=== PATIENT | female | born 1990 | race Caucasian/White ===

== ENCOUNTER 2020-04-12 18:24 | Inpatient (IN) | payer MEDICAID ==
[~2020-04-12] VITALS: Ht 175.3 cm; Wt 75.9 kg
[2020-04-12] MEDS ORDERED: IV NORMAL SALINE 1000ML BAG 1,000 ML IV SCH ×2 (18:36→20:19)
--- NOTE | 2020-04-12 18:51 | PHYS DOC ---
General Adult EDM: Chief Complaint: ABDOMINAL PAIN HPI: HPI: Patient is a 29 year old female who presents with states earlier this morning she been having stabbing mid abdominal pains, nausea, vomiting. States her last bowel movement was yesterday and it was normal for her. She rates her pain a 10 out of 10. Review of Systems: Review of Systems: GI: abdominal pain, nausea, vomiting, denies bloody stools or diarrhea. [] Heart Score: Risk Factors: Risk Factors: DM, Current or recent (<one month) smoker, HTN, HLP, family history of CAD, obesity. Risk Scores: Score 0 - 3: 2.5% MACE over next 6 weeks - Discharge Home Score 4 - 6: 20.3% MACE over next 6 weeks - Admit for Clinical Observation Score 7 - 10: 72.7% MACE over next 6 weeks - Early Invasive Strategies Current Medications: Current Medications Medications (Trade) Dose Ordered Sig/Wyatt Start Time Stop Time Status Last Admin Dose Admin Sodium Chloride 1,000 ml @ 1,000 mls/hr Q1H 04/12/20 18:36 04/12/20 19:35 Allergies: Allergies: Allergies Coded Allergies Type Severity Reaction Last Updated Verified No Known Drug Allergies 04/12/20 No Physical Exam: PE: Constitutional: Well developed, well nourished, no acute distress, non-toxic appearance. [] HENT: Normocephalic, atraumatic, bilateral external ears normal, oropharynx moist, no oral exudates, nose normal. [] Eyes: PERRLA, EOMI, conjunctiva normal, no discharge. [] Neck: Normal range of motion, no tenderness, supple, no stridor. [] Cardiovascular:Heart rate regular rhythm, no murmur [] Lungs & Thorax: Bilateral breath sounds clear to auscultation [] Abdomen: Bowel sounds normal, soft, epigastric and right upper tenderness, no masses, no pulsatile masses. [] Skin: Warm, dry, no erythema, no rash. [] Back: No tenderness, no CVA tenderness. [] Extremities: No tenderness, no cyanosis, no clubbing, ROM intact, no edema. [] Neurologic: Alert and oriented X 3, normal motor function, normal sensory function, no focal deficits noted. [] Psychologic: Affect normal, judgement normal, mood normal. [] EKG: EKG: [] Radiology/Procedures: Radiology/Procedures: [] Impression: [facility] [address] [place] [address] IMAGING REPORT Signed PATIENT: RAVEN TRUJILLO ACCOUNT: [id number] : 1990 LOCATION: ER AGE: 29 SEX: F EXAM STATUS: REG ER ORD. PHYSICIAN: BRIGID ADAIR APRN REASON: pain, vomiting PROCEDURE: CT ABD PELV W/ IV CONTRST ONLY Exam: CT of abdomen and pelvis with contrast INDICATION: Pain, vomiting TECHNIQUE: Sequential axial images through the abdomen and pelvis obtained following the administration of 75 mL of Omni 300 IV contrast. Sagittal and coronal reformatted images were reconstructed from the axial data and reviewed. Comparisons: None FINDINGS: Heart size is normal. No pericardial effusion. Visualized lung bases are clear. No pleural effusion. Liver, spleen, pancreas and adrenals are unremarkable. Gallbladder surgically absent. Kidneys demonstrate symmetric enhancement. No perinephric inflammation or hydronephrosis. No renal or ureteral calculi are identified. Bladder is partially distended and appears thin-walled. Uterus is nonenlarged. Mild wall thickening noted in the ascending colon. Otherwise, Large and small bowel are unremarkable. Appendix is nonidentified. No free abdominal air or fluid. No obstruction. Abdominal aorta has a normal course and caliber. No enlarged abdominal lymph nodes are identified. No suspicious osseous lesions or acute fractures. IMPRESSION: Findings likely related to mild colitis affecting the ascending colon. This may be infectious or inflammatory in etiology. Exposure: One or more of the following in the visualized dose reduction techniques were utilized for this examination: 1. Automated exposure control 2. Adjustment of the MA and/or KV according to patient size 3. Use of iterative of reconstructive technique Electronically signed by: Sallie Cooper MD (04/12/2020 7:57 PM) [id number] DICTATED and SIGNED BY: SALLIE COOPER MD DATE: 04/12/201956 Course & Med Decision Making: Course & Med Decision Making Pertinent Labs and Imaging studies reviewed. (See chart for details) When walking to the room patient seems to be very drowsy. Alert and oriented. Speaks in full clear sentences. Answers all questions appropriately. Abdomen is soft but tender to epigastric and over to the right upper abdomen area. Denies any dysuria, chest pain, fever, back pain, shortness of breath, cough, dizziness, headache, numbness or tingling, vision changes, focal weaknesses. Bowel sounds are active. Patient is not feeling better after pain medication and fluids. She is positive for Meth and opiates. Patient is currently curled up due to pain. I have started Cipro and flagyl. I have spoken to Dr Felton for admission. [] Solange Disclaimer: Solange Disclaimer: This electronic medical record was generated, in whole or in part, using a voice recognition dictation system. Departure Departure Impression: Primary Impression: Colitis Disposition: ADMITTED INPATIENT Admitting Physician: RAHUL Condition: STABLE Referrals: NO PCP (PCP) Justicifation of Admission Dx: Justifications for Admission: Justification of Admission Dx: N/A (COLITIS) BRIGID ADAIR SECURITY PUBLIC SAFETY OFFICER Apr 12, 2020 18:51
[2020-04-12 18:54] LABS: BILIRUBIN,URINE NEGATIVE (NEG); CLARITY,URINE CLEAR; COLOR,URINE YELLOW; NITRITE,URINE NEGATIVE (NEG); PROTEIN,URINE NEGATIVE (NEG-TRACE); UROBILINOGEN,URINE 0.2 mg/dL (0.2 mg/dL)
[2020-04-12 18:59] LABS: SQUAMOUS EPITHELIAL CELL,UR MOD /LPF
[2020-04-12 19:00] LABS: BACTERIA,URINE FEW /HPF (0-FEW)
[2020-04-12] MEDS ORDERED: ONDANSETRON PF 4 MG/2 ML VIAL. IVP ONE (19:00)
[2020-04-12] MEDS ORDERED: fentaNYL PF VIAL 100 MCG/2 ML VIAL IVP ONE ×2 (19:00→20:15)
[2020-04-12 19:02] LABS: BARBITURATES NEG (NEG); BENZODIAZEPINES NEG (NEG); CANNABINOIDS NEG (NEG); COCAINE NEG (NEG); METHADONE NEG (NEG); OPIATES POS (NEG); PHENCYCLIDINE NEG (NEG)
[2020-04-12 19:03] LABS: AMPHETAMINE/METHAMPHETAMINE POS (NEG)
[2020-04-12 19:06] LABS: BASO # 0.1 x10^3/uL (0.0-0.2); BASO % 1 % (0-3); EOS # 0.1 x10^3/uL (0.0-0.7); EOS % 0 % (0-3); HEMATOCRIT 38.6 % (36.0-47.0); HEMOGLOBIN 13.3 g/dL (12.0-15.5); LYMPH # 1.7 x10^3/uL (1.0-4.8); LYMPH % 15 % (24-48); MEAN CORPUSCULAR HEMOGLOBIN 29 pg (25-35); MEAN CORPUSCULAR HGB CONC 34 g/dL (31-37); MEAN CORPUSCULAR VOLUME 84 fL (79-100); MONO % 8 % (0-9); NEUT # 9.1 x10^3/uL (1.8-7.7); NEUT % 77 % (31-73); PLATELET COUNT 286 x10^3/uL (140-400); RED BLOOD COUNT 4.61 x10^6/uL (3.50-5.40); RED CELL DISTRIBUTION WIDTH 16.3 % (11.5-14.5); WHITE BLOOD COUNT 11.9 x10^3/uL (4.0-11.0)
[2020-04-12 19:14] LABS: CALCIUM 8.8 mg/dL (8.5-10.1); CREATININE 0.9 mg/dL (0.6-1.0); POTASSIUM 3.9 mmol/L (3.5-5.1)
[2020-04-12 19:15] LABS: PROTHROMBIN TIME PATIENT 13.5 SEC (11.7-14.0)
[2020-04-12] MEDS ORDERED: IOHEXOL 300 MG/ML 100ML VIAL. IV ONE (19:15)
[2020-04-12] MEDS ORDERED: CONTRAST GIVEN. MC PRN (19:15)
[2020-04-12 19:20] LABS: ALBUMIN 3.4 g/dL (3.4-5.0); TOTAL BILIRUBIN 0.2 mg/dL (0.2-1.0); TOTAL PROTEIN 6.7 g/dL (6.4-8.2)
--- NOTE | 2020-04-12 20:00 | RAD ---
Exam: CT of abdomen and pelvis with contrast INDICATION: Pain, vomiting TECHNIQUE: Sequential axial images through the abdomen and pelvis obtained following the administration of 75 mL of Omni 300 IV contrast. Sagittal and coronal reformatted images were reconstructed from the axial data and reviewed. Comparisons: None FINDINGS: Heart size is normal. No pericardial effusion. Visualized lung bases are clear. No pleural effusion. Liver, spleen, pancreas and adrenals are unremarkable. Gallbladder surgically absent. Kidneys demonstrate symmetric enhancement. No perinephric inflammation or hydronephrosis. No renal or ureteral calculi are identified. Bladder is partially distended and appears thin-walled. Uterus is nonenlarged. Mild wall thickening noted in the ascending colon. Otherwise, Large and small bowel are unremarkable. Appendix is nonidentified. No free abdominal air or fluid. No obstruction. Abdominal aorta has a normal course and caliber. No enlarged abdominal lymph nodes are identified. No suspicious osseous lesions or acute fractures. IMPRESSION: Findings likely related to mild colitis affecting the ascending colon. This may be infectious or inflammatory in etiology. Exposure: One or more of the following in the visualized dose reduction techniques were utilized for this examination: 1. Automated exposure control 2. Adjustment of the MA and/or KV according to patient size 3. Use of iterative of reconstructive technique Electronically signed by: Sallie Fallon MD (04/12/2020 7:57 PM) [id number]
[2020-04-12] MEDS ORDERED: CIPROFLOXACIN 400MG PREMIX 200 ML IV ONE (20:15)
[2020-04-12] MEDS ORDERED: ONDANSETRON PF 4 MG/2 ML VIAL. IV PRN (20:30)
--- NOTE | 2020-04-12 21:08 | PDOC1 ---
History and Physical Date of Admission Date of Admission DATE: 04/12/20 TIME: 21:04 Source Source: Chart review, Patient History of Present Illness History of Present Illness Dean is a 29 year old female who presents with states earlier this morning she been having stabbing mid abdominal pains, nausea, vomiting. States her last bowel movement was yesterday and it was normal for her. She rates her pain a 9 out of 10. she has been off work for over 3 weeks due to the COVID, works at an [employer] Past Medical History Cardiovascular: No pertinent hx Pulmonary: No pertinent hx GI: No pertinent hx Heme/Onc: No pertinent hx Psych: No pertinent hx Rheumatologic: No pertinent hx Infectious disease: No pertinent hx Renal/: No pertinent hx Endocrine: No pertinent hx Past Surgical History Past Surgical History: No pertinent history Family History Family History: No Significant Social History Smoke: 1 pack per day ALCOHOL: rare Drugs: None Current Problem List Problem List Problems Medical Problems: (1) Colitis Status: Acute Current Medications Current Medications Current Medications Sodium Chloride 1,000 ml @ 1,000 mls/hr Q1H IV Last administered on 04/12/20at 19:01; Start 04/12/20 at 18:36; Stop 04/12/20 at 19:35; Status DC Ondansetron HCl (Zofran) 4 mg 1X ONCE IVP Last administered on 04/12/20at 19:06; Start 04/12/20 at 19:00; Stop 04/12/20 at 19:01; Status DC Fentanyl Citrate (Fentanyl 2ml Vial) 50 mcg 1X ONCE IVP Last administered on 04/12/20at 19:07; Start 04/12/20 at 19:00; Stop 04/12/20 at 19:01; Status DC Iohexol (Omnipaque 300 Mg/ml) 75 ml 1X ONCE IV Last administered on 04/12/20at 19:39; Start 04/12/20 at 19:15; Stop 04/12/20 at 19:16; Status DC Info (CONTRAST GIVEN -- Rx MONITORING) 1 each PRN DAILY PRN MC SEE COMMENTS; Start 04/12/20 at 19:15; Stop 04/14/20 at 19:14 Ciprofloxacin/ Dextrose 200 ml @ 200 mls/hr 1X ONCE IV ; Start 04/12/20 at 20:15; Stop 04/12/20 at 21:14 Metronidazole 100 ml @ 100 mls/hr 1X ONCE IV ; Start 04/12/20 at 20:15; Stop 04/12/20 at 21:14 Fentanyl Citrate (Fentanyl 2ml Vial) 50 mcg 1X ONCE IVP ; Start 04/12/20 at 20:15; Stop 04/12/20 at 20:16; Status DC Ondansetron HCl (Zofran) 4 mg PRN Q8HRS PRN IV NAUSEA/VOMITING; Start 04/12/20 at 20:30; Stop 04/13/20 at 20:29 Sodium Chloride 1,000 ml @ 125 mls/hr Q8H IV ; Start 04/12/20 at 20:19; Stop 04/13/20 at 20:18 Metronidazole 100 ml @ 100 mls/hr Q8HRS IV ; Start 04/12/20 at 22:00; Status UNV Allergies Allergies: Coded Allergies: No Known Drug Allergies (Unverified , 04/12/20) ROS General: YES: Chills, Fatigue, Malaise; No: Night Sweats, Appetite, Other PSYCHOLOGICAL ROS: No: Anxiety, Behavioral Disorder, Concentration difficultie, Decreased libido, Depression, Disorientation, Hallucinations, Hostility, Irritablity, Memory difficulties, Mood Swings, Obsessive thoughts, Physical abuse, Sexual abuse, Sleep disturbances, Suicidal ideation, Other HEENT: No: Heacaches, Visual Changes, Hearing change, Nasal congestion, Nasal discharge, Oral lesions, Sinus pain, Sore Throat, Epistaxis, Sneezing, Snoring, Tinnitus, Vertigo, Vocal changes, Other Hematological and Lymphatic: No: Bleeding Problems, Blood Clots, Blood Transfusions, Brusing, Night Sweats, Pallor, Swollen Lymph Nodes, Other Cardiovascular: No Chest Pain, No Palpitations, No Orthopnea, No Paroxysmal Noc. Dyspnea, No Edema, No Lt Headedness, No Other Gastrointestinal: Yes Nausea, Yes Vomiting, Yes Abdominal Pain, Yes Diarrhea Genitourinary: No Dysuria, No Frequency, No Incontinence, No Hematuria, No Retention, No Discharge, No Urgency, No Pain, No Flank Pain, No Other, No , No , No , No , No , No , No Musculoskeletal: No Gait Disturbance, No Joint Pain, No Joint Stiffness, No Joint Swelling, No Muscle Pain, No Muscular Weakness, No Pain In:, No Swelling In:, No Other Neurological: No Behavorial Changes, No Bowel/Bladder ControlChng, No Confusion, No Dizziness, No Gait Disturbance, No Headaches, No Impaired Coord/balance, No Memory Loss, No Numbness/Tingling, No Seizures, No Speech Problems, No Tremors, No Visual Changes, No Weakness, No Other Skin: No Dry Skin, No Eczema, No Hair Changes, No Lumps, No Mole Changes, No Mottling, No Nail Changes, No Pruritus, No Rash, No Skin Lesion Changes, No Other, No Acne Physical Exam General: Alert, Oriented X3, Cooperative, mild distress HEENT: Mucous membr. moist/pink Lungs: Clear to auscultation, Normal air movement Heart: S1S2, no murmurs Abdomen: Soft (tender, no guarding) Extremities: No cyanosis, No edema Skin: No rashes, No significant lesion Neuro: Normal tone, Sensation intact Psych/Mental Status: Mood NL Vitals Vitals Vital Signs Date Time Temp Pulse Resp B/P (MAP) Pulse Ox O2 Delivery O2 Flow Rate FiO2 04/12/20 19:44 69 141/91 (108) 04/12/20 19:08 100 Room Air 04/12/20 18:40 98.5 24 98.5 Labs Labs Laboratory Tests Test 04/12/20 18:35 04/12/20 18:45 04/12/20 18:56 Urine Collection Type Unknown Urine Color Yellow Urine Clarity Clear Urine pH 6.0 (<5.0-8.0) Urine Specific [place] 1.025 (1.000-1.030) Urine Protein Negative mg/dL (NEG-TRACE) Urine Glucose (UA) Negative mg/dL (NEG) Urine Ketones (Stick) Negative mg/dL (NEG) Urine Blood Negative (NEG) Urine Nitrite Negative (NEG) Urine Bilirubin Negative (NEG) Urine Urobilinogen Dipstick 0.2 mg/dL (0.2 mg/dL) Urine Leukocyte Esterase Small (NEG) Urine RBC 1-2 /HPF (0-2) Urine WBC 5-10 /HPF (0-4) Urine Squamous Epithelial Cells Mod /LPF Urine Bacteria Few /HPF (0-FEW) Urine Mucus Mod /LPF Urine Opiates Screen Pos (NEG) Urine Methadone Screen Neg (NEG) Urine Barbiturates Neg (NEG) Urine Phencyclidine Screen Neg (NEG) Urine Amphetamine/Methamphetamine Pos (NEG) Urine Benzodiazepines Screen Neg (NEG) Urine Cocaine Screen Neg (NEG) Urine Cannabinoids Screen Neg (NEG) Urine Ethyl Alcohol Neg (NEG) Bedside Urine HCG, Qualitative Hcg negative (Negative) White Blood Count 11.9 x10^3/uL (4.0-11.0) Red Blood Count 4.61 x10^6/uL (3.50-5.40) Hemoglobin 13.3 g/dL (12.0-15.5) Hematocrit 38.6 % (36.0-47.0) Mean Corpuscular Volume 84 fL (79-100) Mean Corpuscular Hemoglobin 29 pg (25-35) Mean Corpuscular Hemoglobin Concent 34 g/dL (31-37) Red Cell Distribution Width 16.3 % (11.5-14.5) Platelet Count 286 x10^3/uL (140-400) Neutrophils (%) (Auto) 77 % (31-73) Lymphocytes (%) (Auto) 15 % (24-48) Monocytes (%) (Auto) 8 % (0-9) Eosinophils (%) (Auto) 0 % (0-3) Basophils (%) (Auto) 1 % (0-3) Neutrophils # (Auto) 9.1 x10^3/uL (1.8-7.7) Lymphocytes # (Auto) 1.7 x10^3/uL (1.0-4.8) Monocytes # (Auto) 1.0 x10^3/uL (0.0-1.1) Eosinophils # (Auto) 0.1 x10^3/uL (0.0-0.7) Basophils # (Auto) 0.1 x10^3/uL (0.0-0.2) Prothrombin Time 13.5 SEC (11.7-14.0) Prothromb Time International Ratio 1.1 (0.8-1.1) Sodium Level 139 mmol/L (136-145) Potassium Level 3.9 mmol/L (3.5-5.1) Chloride Level 106 mmol/L (98-107) Carbon Dioxide Level 25 mmol/L (21-32) Anion Gap 8 (6-14) Blood Urea Nitrogen 9 mg/dL (7-20) Creatinine 0.9 mg/dL (0.6-1.0) Estimated GFR (Cockcroft-Gault) 74.0 BUN/Creatinine Ratio 10 (6-20) Glucose Level 104 mg/dL (70-99) Calcium Level 8.8 mg/dL (8.5-10.1) Total Bilirubin 0.2 mg/dL (0.2-1.0) Aspartate Amino Transf (AST/SGOT) 19 U/L (15-37) Alanine Aminotransferase (ALT/SGPT) 19 U/L (14-59) Alkaline Phosphatase 72 U/L (46-116) Total Protein 6.7 g/dL (6.4-8.2) Albumin 3.4 g/dL (3.4-5.0) Albumin/Globulin Ratio 1.0 (1.0-1.7) Lipase 200 U/L (73-393) Laboratory Tests Test 04/12/20 18:35 04/12/20 18:45 04/12/20 18:56 Urine Collection Type Unknown Urine Color Yellow Urine Clarity Clear Urine pH 6.0 (<5.0-8.0) Urine Specific [place] 1.025 (1.000-1.030) Urine Protein Negative mg/dL (NEG-TRACE) Urine Glucose (UA) Negative mg/dL (NEG) Urine Ketones (Stick) Negative mg/dL (NEG) Urine Blood Negative (NEG) Urine Nitrite Negative (NEG) Urine Bilirubin Negative (NEG) Urine Urobilinogen Dipstick 0.2 mg/dL (0.2 mg/dL) Urine Leukocyte Esterase Small (NEG) Urine RBC 1-2 /HPF (0-2) Urine WBC 5-10 /HPF (0-4) Urine Squamous Epithelial Cells Mod /LPF Urine Bacteria Few /HPF (0-FEW) Urine Mucus Mod /LPF Urine Opiates Screen Pos (NEG) Urine Methadone Screen Neg (NEG) Urine Barbiturates Neg (NEG) Urine Phencyclidine Screen Neg (NEG) Urine Amphetamine/Methamphetamine Pos (NEG) Urine Benzodiazepines Screen Neg (NEG) Urine Cocaine Screen Neg (NEG) Urine Cannabinoids Screen Neg (NEG) Urine Ethyl Alcohol Neg (NEG) Bedside Urine HCG, Qualitative Hcg negative (Negative) White Blood Count 11.9 x10^3/uL (4.0-11.0) Red Blood Count 4.61 x10^6/uL (3.50-5.40) Hemoglobin 13.3 g/dL (12.0-15.5) Hematocrit 38.6 % (36.0-47.0) Mean Corpuscular Volume 84 fL (79-100) Mean Corpuscular Hemoglobin 29 pg (25-35) Mean Corpuscular Hemoglobin Concent 34 g/dL (31-37) Red Cell Distribution Width 16.3 % (11.5-14.5) Platelet Count 286 x10^3/uL (140-400) Neutrophils (%) (Auto) 77 % (31-73) Lymphocytes (%) (Auto) 15 % (24-48) Monocytes (%) (Auto) 8 % (0-9) Eosinophils (%) (Auto) 0 % (0-3) Basophils (%) (Auto) 1 % (0-3) Neutrophils # (Auto) 9.1 x10^3/uL (1.8-7.7) Lymphocytes # (Auto) 1.7 x10^3/uL (1.0-4.8) Monocytes # (Auto) 1.0 x10^3/uL (0.0-1.1) Eosinophils # (Auto) 0.1 x10^3/uL (0.0-0.7) Basophils # (Auto) 0.1 x10^3/uL (0.0-0.2) Prothrombin Time 13.5 SEC (11.7-14.0) Prothromb Time International Ratio 1.1 (0.8-1.1) Sodium Level 139 mmol/L (136-145) Potassium Level 3.9 mmol/L (3.5-5.1) Chloride Level 106 mmol/L (98-107) Carbon Dioxide Level 25 mmol/L (21-32) Anion Gap 8 (6-14) Blood Urea Nitrogen 9 mg/dL (7-20) Creatinine 0.9 mg/dL (0.6-1.0) Estimated GFR (Cockcroft-Gault) 74.0 BUN/Creatinine Ratio 10 (6-20) Glucose Level 104 mg/dL (70-99) Calcium Level 8.8 mg/dL (8.5-10.1) Total Bilirubin 0.2 mg/dL (0.2-1.0) Aspartate Amino Transf (AST/SGOT) 19 U/L (15-37) Alanine Aminotransferase (ALT/SGPT) 19 U/L (14-59) Alkaline Phosphatase 72 U/L (46-116) Total Protein 6.7 g/dL (6.4-8.2) Albumin 3.4 g/dL (3.4-5.0) Albumin/Globulin Ratio 1.0 (1.0-1.7) Lipase 200 U/L (73-393) VTE Prophylaxis Ordered VTE Prophylaxis Devices: No VTE Pharmacological Prophylaxi: No Assessment/Plan Assessment/Plan acute abd pain nausea and vomiting and diarrhea acute enteritis, started infectious treatment sepsis, tobacco use disorder Justicifation of Admission Dx: Justifications for Admission: Justification of Admission Dx: Yes Sepsis: Parenteral Antimicrobial ROSALIE BALDWIN MD Apr 12, 2020 21:08
[2020-04-12] MEDS ORDERED: NICOTINE 21MG PATCH. TD PRN (21:15)
[2020-04-12] MEDS: IV NORMAL SALINE 1000ML BAG 1,000 ML IV SCH (21:15)
[2020-04-12] MEDS: fentaNYL PF VIAL 100 MCG/2 ML VIAL IVP PRN (22:51)
[2020-04-12 23:00] VITALS: BP 115/64
[2020-04-12] MEDS: ZOLPIDEM 5 MG TABLET. PO PRN (23:41)
[2020-04-13] MEDS: fentaNYL PF VIAL 100 MCG/2 ML VIAL IVP PRN ×5 (02:42→22:43)
[2020-04-13 03:00] VITALS: BP 111/50
[2020-04-13 07:38] VITALS: BP 112/73
[2020-04-13 08:59] LABS: BASO % 0 % (0-3); EOS # 0.1 x10^3/uL (0.0-0.7); EOS % 1 % (0-3); HEMATOCRIT 38.3 % (36.0-47.0); HEMOGLOBIN 12.6 g/dL (12.0-15.5); LYMPH % 17 % (24-48); MEAN CORPUSCULAR HEMOGLOBIN 28 pg (25-35); MEAN CORPUSCULAR HGB CONC 33 g/dL (31-37); MEAN CORPUSCULAR VOLUME 85 fL (79-100); MONO # 0.7 x10^3/uL (0.0-1.1); MONO % 6 % (0-9); NEUT # 8.5 x10^3/uL (1.8-7.7); NEUT % 75 % (31-73); PLATELET COUNT 242 x10^3/uL (140-400); RED BLOOD COUNT 4.51 x10^6/uL (3.50-5.40); RED CELL DISTRIBUTION WIDTH 16.4 % (11.5-14.5); WHITE BLOOD COUNT 11.3 x10^3/uL (4.0-11.0)
[2020-04-13 09:03] LABS: CALCIUM 8.5 mg/dL (8.5-10.1); CREATININE 0.8 mg/dL (0.6-1.0); GFR 84.8; POTASSIUM 3.9 mmol/L (3.5-5.1)
[2020-04-13] MEDS: IV NORMAL SALINE 1000ML BAG 1,000 ML IV SCH ×2 (09:41→21:14)
--- NOTE | 2020-04-13 09:55 | PDOC2 ---
GI CONSULT Reason For Consult: colitis HPI: HPI: 29 y/o female admitted last night through ER. Reports constant stabbing right periumbilical pain w/o radiation since 4:00 a.m. yesterday - awoke her from sleep. Associated w/ nausea (no vomiting) and diarrhea ("not totally watery," not sure how many times). Denies precipitating events and no similar symptoms in the past. Labs unrevealing except for mild leukocytosis and tox screen + amphetamines. CT A/P notes mild colitis in ascending colon. Given Cipro and Flagyl in ER. Denies reflux/heartburn, constipation, hematochezia, melena, weight loss, and fever. Typically no issues w/ abd pain, nausea, or diarrhea. No previous EGD or colonoscopy. S/p cholecystectomy. No liver, pancreas, or PUD history. Occasional Tylenol or ibuprofen use (couple times a month) for kne e pain. 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 PMH: PMH: cholecystectomy, right ACL repair x 2 FH: Family History: No pertinent hx (no FH IBD), Cancer (grandmother - breast, grandfather - pancreatic) Social History: Smoke: 1 pack per day ALCOHOL: rare Drugs: Crystal meth (per tox screen - she denies meth use and says she took an Adderall on Sunday but doesn't have a script for this) ROS: GEN: Denies fevers, chills, sweats HEENT: Denies blurred vision, sore throat CV: Denies chest pain RESP: Denies shortness of air, cough GI: Per HPI : Denies hematuria, dysuria ENDO: Denies weight changes NEURO: Denies confusion, dizziness MSK: chronic right knee pain SKIN: Denies jaundice, pruritus Vitals: Vitals: Vital Signs Date Time Temp Pulse Resp B/P (MAP) Pulse Ox O2 Delivery O2 Flow Rate FiO2 04/13/20 07:38 97.3 63 18 112/73 (86) 98 Room Air 97.3 Labs: Labs: Laboratory Tests Test 04/12/20 18:35 04/12/20 18:45 04/12/20 18:56 04/13/20 08:35 Urine Collection Type Unknown Urine Color Yellow Urine Clarity Clear Urine pH 6.0 (<5.0-8.0) Urine Specific [place] 1.025 (1.000-1.030) Urine Protein Negative mg/dL (NEG-TRACE) Urine Glucose (UA) Negative mg/dL (NEG) Urine Ketones (Stick) Negative mg/dL (NEG) Urine Blood Negative (NEG) Urine Nitrite Negative (NEG) Urine Bilirubin Negative (NEG) Urine Urobilinogen Dipstick 0.2 mg/dL (0.2 mg/dL) Urine Leukocyte Esterase Small (NEG) Urine RBC 1-2 /HPF (0-2) Urine WBC 5-10 /HPF (0-4) Urine Squamous Epithelial Cells Mod /LPF Urine Bacteria Few /HPF (0-FEW) Urine Mucus Mod /LPF Urine Opiates Screen Pos (NEG) Urine Methadone Screen Neg (NEG) Urine Barbiturates Neg (NEG) Urine Phencyclidine Screen Neg (NEG) Urine Amphetamine/Methamphetamine Pos (NEG) Urine Benzodiazepines Screen Neg (NEG) Urine Cocaine Screen Neg (NEG) Urine Cannabinoids Screen Neg (NEG) Urine Ethyl Alcohol Neg (NEG) Bedside Urine HCG, Qualitative Hcg negative (Negative) White Blood Count 11.9 x10^3/uL (4.0-11.0) 11.3 x10^3/uL (4.0-11.0) Red Blood Count 4.61 x10^6/uL (3.50-5.40) 4.51 x10^6/uL (3.50-5.40) Hemoglobin 13.3 g/dL (12.0-15.5) 12.6 g/dL (12.0-15.5) Hematocrit 38.6 % (36.0-47.0) 38.3 % (36.0-47.0) Mean Corpuscular Volume 84 fL (79-100) 85 fL (79-100) Mean Corpuscular Hemoglobin 29 pg (25-35) 28 pg (25-35) Mean Corpuscular Hemoglobin Concent 34 g/dL (31-37) 33 g/dL (31-37) Red Cell Distribution Width 16.3 % (11.5-14.5) 16.4 % (11.5-14.5) Platelet Count 286 x10^3/uL (140-400) 242 x10^3/uL (140-400) Neutrophils (%) (Auto) 77 % (31-73) 75 % (31-73) Lymphocytes (%) (Auto) 15 % (24-48) 17 % (24-48) Monocytes (%) (Auto) 8 % (0-9) 6 % (0-9) Eosinophils (%) (Auto) 0 % (0-3) 1 % (0-3) Basophils (%) (Auto) 1 % (0-3) 0 % (0-3) Neutrophils # (Auto) 9.1 x10^3/uL (1.8-7.7) 8.5 x10^3/uL (1.8-7.7) Lymphocytes # (Auto) 1.7 x10^3/uL (1.0-4.8) 2.0 x10^3/uL (1.0-4.8) Monocytes # (Auto) 1.0 x10^3/uL (0.0-1.1) 0.7 x10^3/uL (0.0-1.1) Eosinophils # (Auto) 0.1 x10^3/uL (0.0-0.7) 0.1 x10^3/uL (0.0-0.7) Basophils # (Auto) 0.1 x10^3/uL (0.0-0.2) 0.0 x10^3/uL (0.0-0.2) Prothrombin Time 13.5 SEC (11.7-14.0) Prothromb Time International Ratio 1.1 (0.8-1.1) Sodium Level 139 mmol/L (136-145) 141 mmol/L (136-145) Potassium Level 3.9 mmol/L (3.5-5.1) 3.9 mmol/L (3.5-5.1) Chloride Level 106 mmol/L (98-107) 108 mmol/L (98-107) Carbon Dioxide Level 25 mmol/L (21-32) 22 mmol/L (21-32) Anion Gap 8 (6-14) 11 (6-14) Blood Urea Nitrogen 9 mg/dL (7-20) 7 mg/dL (7-20) Creatinine 0.9 mg/dL (0.6-1.0) 0.8 mg/dL (0.6-1.0) Estimated GFR (Cockcroft-Gault) 74.0 84.8 BUN/Creatinine Ratio 10 (6-20) Glucose Level 104 mg/dL (70-99) 100 mg/dL (70-99) Calcium Level 8.8 mg/dL (8.5-10.1) 8.5 mg/dL (8.5-10.1) Total Bilirubin 0.2 mg/dL (0.2-1.0) Aspartate Amino Transf (AST/SGOT) 19 U/L (15-37) Alanine Aminotransferase (ALT/SGPT) 19 U/L (14-59) Alkaline Phosphatase 72 U/L (46-116) Total Protein 6.7 g/dL (6.4-8.2) Albumin 3.4 g/dL (3.4-5.0) Albumin/Globulin Ratio 1.0 (1.0-1.7) Lipase 200 U/L (73-393) Allergies: Coded Allergies: No Known Drug Allergies (Unverified , 04/12/20) Medications: Current Medications Medications (Trade) Dose Ordered Sig/[place] Route PRN Reason Start Time Stop Time Status Last Admin Dose Admin Sodium Chloride 1,000 ml @ 1,000 mls/hr Q1H IV 04/12/20 18:36 04/12/20 19:35 DC 04/12/20 19:01 Ondansetron HCl (Zofran) 4 mg 1X ONCE IVP 04/12/20 19:00 04/12/20 19:01 DC 04/12/20 19:06 Fentanyl Citrate (Fentanyl 2ml Vial) 50 mcg 1X ONCE IVP 04/12/20 19:00 04/12/20 19:01 DC 04/12/20 19:07 Iohexol (Omnipaque 300 Mg/ml) 75 ml 1X ONCE IV 04/12/20 19:15 04/12/20 19:16 DC 04/12/20 19:39 Ciprofloxacin/ Dextrose 200 ml @ 200 mls/hr 1X ONCE IV 04/12/20 20:15 04/12/20 21:14 DC 04/12/20 21:08 Metronidazole 100 ml @ 100 mls/hr 1X ONCE IV 04/12/20 20:15 04/12/20 21:14 DC 04/12/20 20:30 Fentanyl Citrate (Fentanyl 2ml Vial) 50 mcg 1X ONCE IVP 04/12/20 20:15 04/12/20 20:16 DC 04/12/20 20:30 Metronidazole 100 ml @ 100 mls/hr Q8HRS IV 04/13/20 06:00 04/13/20 05:38 Sodium Chloride 1,000 ml @ 100 mls/hr Q10H IV 04/12/20 21:15 04/13/20 09:41 Zolpidem Tartrate (Ambien) 5 mg PRN QHS PRN PO INSOMNIA, MAY REPEAT IN 1HR 04/12/20 21:15 04/12/20 23:41 Fentanyl Citrate (Fentanyl 2ml Vial) 50 mcg PRN Q2HR PRN IVP PAIN 04/12/20 22:30 04/13/20 06:24 Imaging: Imaging: CT A/P w/ IV contrast Heart size is normal. No pericardial effusion. Visualized lung bases are clear. No pleural effusion. Liver, spleen, pancreas and adrenals are unremarkable. Gallbladder surgically absent. Kidneys demonstrate symmetric enhancement. No perinephric inflammation or hydronephrosis. No renal or ureteral calculi are identified. Bladder is partially distended and appears thin-walled. Uterus is nonenlarged. Mild wall thickening noted in the ascending colon. Otherwise, Large and small bowel are unremarkable. Appendix is nonidentified. No free abdominalair or fluid. No obstruction. Abdominal aorta has a normal course and caliber. No enlarged abdominal lymph nodes are identified. No suspicious osseous lesions or acute fractures. IMPRESSION: Findings likely related to mild colitis affecting the ascending colon. This may be infectious or inflammatory in etiology. PE: GEN: uncomfortable HEENT: Atraumatic, PERRL, poor dentition LUNGS: CTAB HEART: RRR ABD: fairly quiet, soft, quite tender in right abdomen to light touch - mostly periumbilical EXTREMITY: No edema SKIN: No rashes, no jaundice NEURO/PSYCH: A & O 3, cooperative, tearful at one point A/P: A/P: Right periumbilical pain, nausea, diarrhea Mild leukocytosis Abnormal CT - mild colitis in ascending colon +meth CRC screen - average risk S/p cholecystectomy FH pancreatic cancer -- ?infectious ?ischemic Check stool studies, try dicyclomine. Consider further eval w/ colonoscopy pending clinical course - could pursue as outpt. CHEYENNE NOLEN Apr 13, 2020 09:55
[2020-04-13 11:20] VITALS: BP 104/54
[2020-04-13] MEDS: DICYCLOMINE HCL 10 MG CAPSULE PO PRN ×2 (11:26→21:13)
--- NOTE | 2020-04-13 11:51 | NUR ---
SW following for discharge planning. SW reviewed chart and spoke with RN. SW met with pt. Pt stated she lives with her parents in [facility]. Pt stated she goes back to work in May per CLAUDY. Pt denied the need for a PAT referral or resources r/t substance abuse per positive toxicology screen for Methamphetamines. Pt on room air. Pt denied any other SW needs at this time.
[2020-04-13 15:07] VITALS: BP 97/57
--- NOTE | 2020-04-13 15:15 | PDOC ---
PROGRESS NOTES Chief Complaint Chief Complaint acute abd pain seems improved nausea and vomiting and diarrhea improved. 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 Monitor for signs of withdrawal Patient denies meth use for a long time despite poor dentition History of Present Illness History of Present Illness No acute events reported overnight, case discussed with nursing staff patient in no acute distress no complaints during my visit Vitals Vitals Vital Signs Date Time Temp Pulse Resp B/P (MAP) Pulse Ox O2 Delivery O2 Flow Rate FiO2 04/13/20 15:07 97.8 62 18 97/57 (70) 98 Room Air 97.8 Physical Exam General: Alert, Oriented X3, Cooperative, mild distress Heart: Regular rate, Normal S1, Normal S2 Lungs: Clear Abdomen: Soft (tender, no guarding) Extremities: No cyanosis, No edema Skin: No rashes, No significant lesion Labs LABS Laboratory Tests Test 04/12/20 18:35 04/12/20 18:45 04/12/20 18:56 04/13/20 08:35 Urine Collection Type Unknown Urine Color Yellow Urine Clarity Clear Urine pH 6.0 (<5.0-8.0) Urine Specific [place] 1.025 (1.000-1.030) Urine Protein Negative mg/dL (NEG-TRACE) Urine Glucose (UA) Negative mg/dL (NEG) Urine Ketones (Stick) Negative mg/dL (NEG) Urine Blood Negative (NEG) Urine Nitrite Negative (NEG) Urine Bilirubin Negative (NEG) Urine Urobilinogen Dipstick 0.2 mg/dL (0.2 mg/dL) Urine Leukocyte Esterase Small (NEG) Urine RBC 1-2 /HPF (0-2) Urine WBC 5-10 /HPF (0-4) Urine Squamous Epithelial Cells Mod /LPF Urine Bacteria Few /HPF (0-FEW) Urine Mucus Mod /LPF Urine Opiates Screen Pos (NEG) Urine Methadone Screen Neg (NEG) Urine Barbiturates Neg (NEG) Urine Phencyclidine Screen Neg (NEG) Urine Amphetamine/Methamphetamine Pos (NEG) Urine Benzodiazepines Screen Neg (NEG) Urine Cocaine Screen Neg (NEG) Urine Cannabinoids Screen Neg (NEG) Urine Ethyl Alcohol Neg (NEG) Bedside Urine HCG, Qualitative Hcg negative (Negative) White Blood Count 11.9 x10^3/uL (4.0-11.0) 11.3 x10^3/uL (4.0-11.0) Red Blood Count 4.61 x10^6/uL (3.50-5.40) 4.51 x10^6/uL (3.50-5.40) Hemoglobin 13.3 g/dL (12.0-15.5) 12.6 g/dL (12.0-15.5) Hematocrit 38.6 % (36.0-47.0) 38.3 % (36.0-47.0) Mean Corpuscular Volume 84 fL (79-100) 85 fL (79-100) Mean Corpuscular Hemoglobin 29 pg (25-35) 28 pg (25-35) Mean Corpuscular Hemoglobin Concent 34 g/dL (31-37) 33 g/dL (31-37) Red Cell Distribution Width 16.3 % (11.5-14.5) 16.4 % (11.5-14.5) Platelet Count 286 x10^3/uL (140-400) 242 x10^3/uL (140-400) Neutrophils (%) (Auto) 77 % (31-73) 75 % (31-73) Lymphocytes (%) (Auto) 15 % (24-48) 17 % (24-48) Monocytes (%) (Auto) 8 % (0-9) 6 % (0-9) Eosinophils (%) (Auto) 0 % (0-3) 1 % (0-3) Basophils (%) (Auto) 1 % (0-3) 0 % (0-3) Neutrophils # (Auto) 9.1 x10^3/uL (1.8-7.7) 8.5 x10^3/uL (1.8-7.7) Lymphocytes # (Auto) 1.7 x10^3/uL (1.0-4.8) 2.0 x10^3/uL (1.0-4.8) Monocytes # (Auto) 1.0 x10^3/uL (0.0-1.1) 0.7 x10^3/uL (0.0-1.1) Eosinophils # (Auto) 0.1 x10^3/uL (0.0-0.7) 0.1 x10^3/uL (0.0-0.7) Basophils # (Auto) 0.1 x10^3/uL (0.0-0.2) 0.0 x10^3/uL (0.0-0.2) Prothrombin Time 13.5 SEC (11.7-14.0) Prothromb Time International Ratio 1.1 (0.8-1.1) Sodium Level 139 mmol/L (136-145) 141 mmol/L (136-145) Potassium Level 3.9 mmol/L (3.5-5.1) 3.9 mmol/L (3.5-5.1) Chloride Level 106 mmol/L (98-107) 108 mmol/L (98-107) Carbon Dioxide Level 25 mmol/L (21-32) 22 mmol/L (21-32) Anion Gap 8 (6-14) 11 (6-14) Blood Urea Nitrogen 9 mg/dL (7-20) 7 mg/dL (7-20) Creatinine 0.9 mg/dL (0.6-1.0) 0.8 mg/dL (0.6-1.0) Estimated GFR (Cockcroft-Gault) 74.0 84.8 BUN/Creatinine Ratio 10 (6-20) Glucose Level 104 mg/dL (70-99) 100 mg/dL (70-99) Calcium Level 8.8 mg/dL (8.5-10.1) 8.5 mg/dL (8.5-10.1) Total Bilirubin 0.2 mg/dL (0.2-1.0) Aspartate Amino Transf (AST/SGOT) 19 U/L (15-37) Alanine Aminotransferase (ALT/SGPT) 19 U/L (14-59) Alkaline Phosphatase 72 U/L (46-116) Total Protein 6.7 g/dL (6.4-8.2) Albumin 3.4 g/dL (3.4-5.0) Albumin/Globulin Ratio 1.0 (1.0-1.7) Lipase 200 U/L (73-393) Procalcitonin < 0.10 ng/mL (0.00-0.10) Test 04/13/20 12:00 Lactic Acid Level 0.6 mmol/L (0.4-2.0) Review of Systems Review of Systems Pertinent as per HPI otherwise 10 point review of system is negative Assessment and Plan Assessmemt and Plan Problems Medical Problems: (1) Colitis Status: Acute Comment Review of Relevant I have reviewed the following items frank (where applicable) has been applied. Labs Laboratory Tests Test 04/12/20 18:35 04/12/20 18:45 04/12/20 18:56 04/13/20 08:35 Urine Collection Type Unknown Urine Color Yellow Urine Clarity Clear Urine pH 6.0 (<5.0-8.0) Urine Specific [place] 1.025 (1.000-1.030) Urine Protein Negative mg/dL (NEG-TRACE) Urine Glucose (UA) Negative mg/dL (NEG) Urine Ketones (Stick) Negative mg/dL (NEG) Urine Blood Negative (NEG) Urine Nitrite Negative (NEG) Urine Bilirubin Negative (NEG) Urine Urobilinogen Dipstick 0.2 mg/dL (0.2 mg/dL) Urine Leukocyte Esterase Small (NEG) Urine RBC 1-2 /HPF (0-2) Urine WBC 5-10 /HPF (0-4) Urine Squamous Epithelial Cells Mod /LPF Urine Bacteria Few /HPF (0-FEW) Urine Mucus Mod /LPF Urine Opiates Screen Pos (NEG) Urine Methadone Screen Neg (NEG) Urine Barbiturates Neg (NEG) Urine Phencyclidine Screen Neg (NEG) Urine Amphetamine/Methamphetamine Pos (NEG) Urine Benzodiazepines Screen Neg (NEG) Urine Cocaine Screen Neg (NEG) Urine Cannabinoids Screen Neg (NEG) Urine Ethyl Alcohol Neg (NEG) Bedside Urine HCG, Qualitative Hcg negative (Negative) White Blood Count 11.9 x10^3/uL (4.0-11.0) 11.3 x10^3/uL (4.0-11.0) Red Blood Count 4.61 x10^6/uL (3.50-5.40) 4.51 x10^6/uL (3.50-5.40) Hemoglobin 13.3 g/dL (12.0-15.5) 12.6 g/dL (12.0-15.5) Hematocrit 38.6 % (36.0-47.0) 38.3 % (36.0-47.0) Mean Corpuscular Volume 84 fL (79-100) 85 fL (79-100) Mean Corpuscular Hemoglobin 29 pg (25-35) 28 pg (25-35) Mean Corpuscular Hemoglobin Concent 34 g/dL (31-37) 33 g/dL (31-37) Red Cell Distribution Width 16.3 % (11.5-14.5) 16.4 % (11.5-14.5) Platelet Count 286 x10^3/uL (140-400) 242 x10^3/uL (140-400) Neutrophils (%) (Auto) 77 % (31-73) 75 % (31-73) Lymphocytes (%) (Auto) 15 % (24-48) 17 % (24-48) Monocytes (%) (Auto) 8 % (0-9) 6 % (0-9) Eosinophils (%) (Auto) 0 % (0-3) 1 % (0-3) Basophils (%) (Auto) 1 % (0-3) 0 % (0-3) Neutrophils # (Auto) 9.1 x10^3/uL (1.8-7.7) 8.5 x10^3/uL (1.8-7.7) Lymphocytes # (Auto) 1.7 x10^3/uL (1.0-4.8) 2.0 x10^3/uL (1.0-4.8) Monocytes # (Auto) 1.0 x10^3/uL (0.0-1.1) 0.7 x10^3/uL (0.0-1.1) Eosinophils # (Auto) 0.1 x10^3/uL (0.0-0.7) 0.1 x10^3/uL (0.0-0.7) Basophils # (Auto) 0.1 x10^3/uL (0.0-0.2) 0.0 x10^3/uL (0.0-0.2) Prothrombin Time 13.5 SEC (11.7-14.0) Prothromb Time International Ratio 1.1 (0.8-1.1) Sodium Level 139 mmol/L (136-145) 141 mmol/L (136-145) Potassium Level 3.9 mmol/L (3.5-5.1) 3.9 mmol/L (3.5-5.1) Chloride Level 106 mmol/L (98-107) 108 mmol/L (98-107) Carbon Dioxide Level 25 mmol/L (21-32) 22 mmol/L (21-32) Anion Gap 8 (6-14) 11 (6-14) Blood Urea Nitrogen 9 mg/dL (7-20) 7 mg/dL (7-20) Creatinine 0.9 mg/dL (0.6-1.0) 0.8 mg/dL (0.6-1.0) Estimated GFR (Cockcroft-Gault) 74.0 84.8 BUN/Creatinine Ratio 10 (6-20) Glucose Level 104 mg/dL (70-99) 100 mg/dL (70-99) Calcium Level 8.8 mg/dL (8.5-10.1) 8.5 mg/dL (8.5-10.1) Total Bilirubin 0.2 mg/dL (0.2-1.0) Aspartate Amino Transf (AST/SGOT) 19 U/L (15-37) Alanine Aminotransferase (ALT/SGPT) 19 U/L (14-59) Alkaline Phosphatase 72 U/L (46-116) Total Protein 6.7 g/dL (6.4-8.2) Albumin 3.4 g/dL (3.4-5.0) Albumin/Globulin Ratio 1.0 (1.0-1.7) Lipase 200 U/L (73-393) Procalcitonin < 0.10 ng/mL (0.00-0.10) Test 04/13/20 12:00 Lactic Acid Level 0.6 mmol/L (0.4-2.0) Laboratory Tests Test 04/12/20 18:35 04/12/20 18:45 04/12/20 18:56 04/13/20 08:35 Urine Collection Type Unknown Urine Color Yellow Urine Clarity Clear Urine pH 6.0 (<5.0-8.0) Urine Specific [place] 1.025 (1.000-1.030) Urine Protein Negative mg/dL (NEG-TRACE) Urine Glucose (UA) Negative mg/dL (NEG) Urine Ketones (Stick) Negative mg/dL (NEG) Urine Blood Negative (NEG) Urine Nitrite Negative (NEG) Urine Bilirubin Negative (NEG) Urine Urobilinogen Dipstick 0.2 mg/dL (0.2 mg/dL) Urine Leukocyte Esterase Small (NEG) Urine RBC 1-2 /HPF (0-2) Urine WBC 5-10 /HPF (0-4) Urine Squamous Epithelial Cells Mod /LPF Urine Bacteria Few /HPF (0-FEW) Urine Mucus Mod /LPF Urine Opiates Screen Pos (NEG) Urine Methadone Screen Neg (NEG) Urine Barbiturates Neg (NEG) Urine Phencyclidine Screen Neg (NEG) Urine Amphetamine/Methamphetamine Pos (NEG) Urine Benzodiazepines Screen Neg (NEG) Urine Cocaine Screen Neg (NEG) Urine Cannabinoids Screen Neg (NEG) Urine Ethyl Alcohol Neg (NEG) Bedside Urine HCG, Qualitative Hcg negative (Negative) White Blood Count 11.9 x10^3/uL (4.0-11.0) 11.3 x10^3/uL (4.0-11.0) Red Blood Count 4.61 x10^6/uL (3.50-5.40) 4.51 x10^6/uL (3.50-5.40) Hemoglobin 13.3 g/dL (12.0-15.5) 12.6 g/dL (12.0-15.5) Hematocrit 38.6 % (36.0-47.0) 38.3 % (36.0-47.0) Mean Corpuscular Volume 84 fL (79-100) 85 fL (79-100) Mean Corpuscular Hemoglobin 29 pg (25-35) 28 pg (25-35) Mean Corpuscular Hemoglobin Concent 34 g/dL (31-37) 33 g/dL (31-37) Red Cell Distribution Width 16.3 % (11.5-14.5) 16.4 % (11.5-14.5) Platelet Count 286 x10^3/uL (140-400) 242 x10^3/uL (140-400) Neutrophils (%) (Auto) 77 % (31-73) 75 % (31-73) Lymphocytes (%) (Auto) 15 % (24-48) 17 % (24-48) Monocytes (%) (Auto) 8 % (0-9) 6 % (0-9) Eosinophils (%) (Auto) 0 % (0-3) 1 % (0-3) Basophils (%) (Auto) 1 % (0-3) 0 % (0-3) Neutrophils # (Auto) 9.1 x10^3/uL (1.8-7.7) 8.5 x10^3/uL (1.8-7.7) Lymphocytes # (Auto) 1.7 x10^3/uL (1.0-4.8) 2.0 x10^3/uL (1.0-4.8) Monocytes # (Auto) 1.0 x10^3/uL (0.0-1.1) 0.7 x10^3/uL (0.0-1.1) Eosinophils # (Auto) 0.1 x10^3/uL (0.0-0.7) 0.1 x10^3/uL (0.0-0.7) Basophils # (Auto) 0.1 x10^3/uL (0.0-0.2) 0.0 x10^3/uL (0.0-0.2) Prothrombin Time 13.5 SEC (11.7-14.0) Prothromb Time International Ratio 1.1 (0.8-1.1) Sodium Level 139 mmol/L (136-145) 141 mmol/L (136-145) Potassium Level 3.9 mmol/L (3.5-5.1) 3.9 mmol/L (3.5-5.1) Chloride Level 106 mmol/L (98-107) 108 mmol/L (98-107) Carbon Dioxide Level 25 mmol/L (21-32) 22 mmol/L (21-32) Anion Gap 8 (6-14) 11 (6-14) Blood Urea Nitrogen 9 mg/dL (7-20) 7 mg/dL (7-20) Creatinine 0.9 mg/dL (0.6-1.0) 0.8 mg/dL (0.6-1.0) Estimated GFR (Cockcroft-Gault) 74.0 84.8 BUN/Creatinine Ratio 10 (6-20) Glucose Level 104 mg/dL (70-99) 100 mg/dL (70-99) Calcium Level 8.8 mg/dL (8.5-10.1) 8.5 mg/dL (8.5-10.1) Total Bilirubin 0.2 mg/dL (0.2-1.0) Aspartate Amino Transf (AST/SGOT) 19 U/L (15-37) Alanine Aminotransferase (ALT/SGPT) 19 U/L (14-59) Alkaline Phosphatase 72 U/L (46-116) Total Protein 6.7 g/dL (6.4-8.2) Albumin 3.4 g/dL (3.4-5.0) Albumin/Globulin Ratio 1.0 (1.0-1.7) Lipase 200 U/L (73-393) Procalcitonin < 0.10 ng/mL (0.00-0.10) Test 04/13/20 12:00 Lactic Acid Level 0.6 mmol/L (0.4-2.0) Medications Current Medications Sodium Chloride 1,000 ml @ 1,000 mls/hr Q1H IV Last administered on 04/12/20 19:01; Start 04/12/20 at 18:36; Stop 04/12/20 at 19:35; Status DC Ondansetron HCl (Zofran) 4 mg 1X ONCE IVP Last administered on 04/12/20 19:06; Start 04/12/20 at 19:00; Stop 04/12/20 at 19:01; Status DC Fentanyl Citrate (Fentanyl 2ml Vial) 50 mcg 1X ONCE IVP Last administered on 04/12/20 19:07; Start 04/12/20 at 19:00; Stop 04/12/20 at 19:01; Status DC Iohexol (Omnipaque 300 Mg/ml) 75 ml 1X ONCE IV Last administered on 04/12/20at 19:39; Start 04/12/20 at 19:15; Stop 04/12/20 at 19:16; Status DC Info (CONTRAST GIVEN -- Rx MONITORING) 1 each PRN DAILY PRN MC SEE COMMENTS; Start 04/12/20 at 19:15; Stop 04/14/20 at 19:14 Ciprofloxacin/ Dextrose 200 ml @ 200 mls/hr 1X ONCE IV Last administered on 04/12/20at 21:08; Start 04/12/20 at 20:15; Stop 04/12/20 at 21:14; Status DC Metronidazole 100 ml @ 100 mls/hr 1X ONCE IV Last administered on 04/12/20at 20:30; Start 04/12/20 at 20:15; Stop 04/12/20 at 21:14; Status DC Fentanyl Citrate (Fentanyl 2ml Vial) 50 mcg 1X ONCE IVP Last administered on at 20:30; Start 04/12/20 at 20:15; Stop 04/12/20 at 20:16; Status DC Ondansetron HCl (Zofran) 4 mg PRN Q8HRS PRN IV NAUSEA/VOMITING; Start 04/12/20 at 20:30; Stop 04/13/20 at 20:29 Sodium Chloride 1,000 ml @ 125 mls/hr Q8H IV ; Start 04/12/20 at 20:19; Stop 04/12/20 at 23:15; Status DC Metronidazole 100 ml @ 100 mls/hr Q8HRS IV Last administered on 04/13/20at 14:42; Start 04/13/20 at 06:00 Sodium Chloride 1,000 ml @ 100 mls/hr Q10H IV Last administered on 04/13/20at 09:41; Start 04/12/20 at 21:15 Nicotine (Nicoderm Cq 21mg) 1 patch PRN DAILY PRN TD SMOKING CESSATION; Start 04/12/20 at 21:15 Zolpidem Tartrate (Ambien) 5 mg PRN QHS PRN PO INSOMNIA, MAY REPEAT IN 1HR Last administered on 04/12/20at 23:41; Start 04/12/20 at 21:15 Fentanyl Citrate (Fentanyl 2ml Vial) 50 mcg PRN Q2HR PRN IVP PAIN Last administered on 04/13/20at 11:27; Start 04/12/20 at 22:30 Dicyclomine HCl (Bentyl) 10 mg PRN QID PRN PO abd pain Last administered on 04/13/20at 11:26; Start 04/13/20 at 11:15 Famotidine (Pepcid) 20 mg QHS PO ; Start 04/13/20 at 21:00 Vitals/I & O Vital Sign - Last 24 Hours 04/12/20 04/12/20 04/12/20 04/12/20 18:40 19:08 19:44 20:30 Temp 98.5 98.5 Pulse 103 84 69 Resp 24 18 B/P (MAP) 134/78 (96) 132/83 (99) 141/91 (108) Pulse Ox 100 100 99 O2 Delivery Room Air Room Air Room Air 04/12/20 04/12/20 04/12/20 04/12/20 22:51 23:00 23:06 23:12 Temp 98.8 98.8 Pulse 61 Resp 18 B/P (MAP) 115/64 (81) Pulse Ox 98 O2 Delivery Room Air Room Air Room Air Room Air 04/13/20 04/13/20 04/13/20 04/13/20 02:42 02:59 03:00 06:24 Temp 98.6 98.6 Pulse 57 Resp 18 B/P (MAP) 111/50 (70) Pulse Ox 98 O2 Delivery Room Air Room Air Room Air Room Air 04/13/20 04/13/20 04/13/20 04/13/20 06:43 07:38 08:00 11:20 Temp 97.3 97.7 97.3 97.7 Pulse 63 57 Resp 18 16 B/P (MAP) 112/73 (86) 104/54 (71) Pulse Ox 98 96 O2 Delivery Room Air Room Air Room Air Room Air 04/13/20 04/13/20 04/13/20 11:27 12:00 15:07 Temp 97.8 97.8 Pulse 62 Resp 19 20 18 B/P (MAP) 97/57 (70) Pulse Ox 94 94 98 O2 Delivery Room Air Room Air Room Air Intake and Output 04/12/20 04/12/20 04/13/20 15:00 23:00 07:00 Intake Total 1000 ml Balance 1000 ml VIOLETTA ROMAN MD Apr 13, 2020 15:15
[2020-04-13 19:00] VITALS: BP 110/76
[2020-04-13] MEDS: LACTOBACILLUS RHAMNOSUS GG 1 CAPSULE. PO SCH (21:13)
[2020-04-13] MEDS: FAMOTIDINE 20 MG TABLET. PO SCH (21:13)
[2020-04-13] MEDS: ZOLPIDEM 5 MG TABLET. PO PRN (21:21)
[2020-04-13 23:00] VITALS: BP 120/77
[2020-04-14 03:00] VITALS: BP 96/49
[2020-04-14] MEDS: DICYCLOMINE HCL 10 MG CAPSULE PO PRN (03:37)
[2020-04-14] MEDS: fentaNYL PF VIAL 100 MCG/2 ML VIAL IVP PRN ×5 (05:35→23:34)
[2020-04-14 07:00] VITALS: BP 105/59
[2020-04-14] MEDS: LACTOBACILLUS RHAMNOSUS GG 1 CAPSULE. PO SCH ×2 (08:58→21:43)
--- NOTE | 2020-04-14 10:12 | PDOC ---
Subjective: Subjective: Pain unchanged. Had one stool overnight. No appetite. Objective: Objective: D/w aide - stool sample not sent because mixed w/ urine. Vital Signs: Vital Signs Date Time Temp Pulse Resp B/P (MAP) Pulse Ox O2 Delivery O2 Flow Rate FiO2 04/14/20 07:00 98.6 52 16 105/59 (74) 97 Room Air 98.6 Labs: Laboratory Tests Test 04/13/20 12:00 Lactic Acid Level 0.6 mmol/L URINE CULTURE Final Final LESS THAN 10,000 CFU/ML Normal genitourinary baylee, not indicative of infection on 04/14/20 at 0916 PE: GEN: looks uncomfortable, rocking in bed LUNGS: CTAB HEART: RRR ABD: right mid-abdomen, RLQ discomfort NEURO/PSYCH: A & O 3 A/P: Right periumbilical pain, nausea, diarrhea Abnormal CT - mild colitis in ascending colon, appendix non-identified +meth -- Ongoing pain, no improvement. Had a stool but unable to collect specimen. Will d/w Dr. Michelle. Justicifation of Admission Dx: Justifications for Admission: Justification of Admission Dx: Yes Sepsis: Parenteral Antimicrobial CHEYENNE NOLEN Apr 14, 2020 10:12
[2020-04-14] MEDS ORDERED: MAGNESIUM CITRATE 296 ML SOLUTION. PO ONE (11:00)
[2020-04-14 11:15] VITALS: BP 107/57
[2020-04-14] MEDS: IV NORMAL SALINE 1000ML BAG 1,000 ML IV SCH ×2 (13:15→17:20)
--- NOTE | 2020-04-14 13:41 | PDOC ---
PROGRESS NOTES Chief Complaint Chief Complaint acute abd pain, patient reporting is persistent. nausea and vomiting and diarrhea improved. acute mild colitis in ascending colon, doubt appendicitis in light of lack of clinical signs sepsis unlikely and ruled out, patient may have had two elements of sirs due to mildly elevated wbc and tachycardia initially all of these have improved, her tachycardia may be explained by meth use. 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 Monitor for signs of withdrawal Patient denies meth use for a long time despite poor dentition History of Present Illness History of Present Illness No acute events reported overnight, case discussed with nursing staff patient in mild distress during my visit. looks uncomfortable but no peritoneal signs evident, GI SIGHT EFFECTS SPECIALIST at bedside. recommendations greatly appreciated Vitals Vitals Vital Signs Date Time Temp Pulse Resp B/P (MAP) Pulse Ox O2 Delivery O2 Flow Rate FiO2 04/14/20 11:15 98.5 58 107/57 (74) 99 Room Air 98.5 04/14/20 10:25 20 Physical Exam General: Alert, Oriented X3, Cooperative, mild distress Heart: Regular rate, Normal S1, Normal S2 Lungs: Clear Abdomen: Soft (tender, no guarding) Extremities: No cyanosis, No edema Skin: No rashes, No significant lesion Assessment and Plan Assessmemt and Plan Problems Medical Problems: (1) Colitis Status: Acute Comment Review of Relevant I have reviewed the following items frank (where applicable) has been applied. Labs Laboratory Tests Test 04/12/20 18:35 04/12/20 18:45 04/12/20 18:56 04/13/20 08:35 Urine Collection Type Unknown Urine Color Yellow Urine Clarity Clear Urine pH 6.0 (<5.0-8.0) Urine Specific [place] 1.025 (1.000-1.030) Urine Protein Negative mg/dL (NEG-TRACE) Urine Glucose (UA) Negative mg/dL (NEG) Urine Ketones (Stick) Negative mg/dL (NEG) Urine Blood Negative (NEG) Urine Nitrite Negative (NEG) Urine Bilirubin Negative (NEG) Urine Urobilinogen Dipstick 0.2 mg/dL (0.2 mg/dL) Urine Leukocyte Esterase Small (NEG) Urine RBC 1-2 /HPF (0-2) Urine WBC 5-10 /HPF (0-4) Urine Squamous Epithelial Cells Mod /LPF Urine Bacteria Few /HPF (0-FEW) Urine Mucus Mod /LPF Urine Opiates Screen Pos (NEG) Urine Methadone Screen Neg (NEG) Urine Barbiturates Neg (NEG) Urine Phencyclidine Screen Neg (NEG) Urine Amphetamine/Methamphetamine Pos (NEG) Urine Benzodiazepines Screen Neg (NEG) Urine Cocaine Screen Neg (NEG) Urine Cannabinoids Screen Neg (NEG) Urine Ethyl Alcohol Neg (NEG) Bedside Urine HCG, Qualitative Hcg negative (Negative) White Blood Count 11.9 x10^3/uL (4.0-11.0) 11.3 x10^3/uL (4.0-11.0) Red Blood Count 4.61 x10^6/uL (3.50-5.40) 4.51 x10^6/uL (3.50-5.40) Hemoglobin 13.3 g/dL (12.0-15.5) 12.6 g/dL (12.0-15.5) Hematocrit 38.6 % (36.0-47.0) 38.3 % (36.0-47.0) Mean Corpuscular Volume 84 fL (79-100) 85 fL (79-100) Mean Corpuscular Hemoglobin 29 pg (25-35) 28 pg (25-35) Mean Corpuscular Hemoglobin Concent 34 g/dL (31-37) 33 g/dL (31-37) Red Cell Distribution Width 16.3 % (11.5-14.5) 16.4 % (11.5-14.5) Platelet Count 286 x10^3/uL (140-400) 242 x10^3/uL (140-400) Neutrophils (%) (Auto) 77 % (31-73) 75 % (31-73) Lymphocytes (%) (Auto) 15 % (24-48) 17 % (24-48) Monocytes (%) (Auto) 8 % (0-9) 6 % (0-9) Eosinophils (%) (Auto) 0 % (0-3) 1 % (0-3) Basophils (%) (Auto) 1 % (0-3) 0 % (0-3) Neutrophils # (Auto) 9.1 x10^3/uL (1.8-7.7) 8.5 x10^3/uL (1.8-7.7) Lymphocytes # (Auto) 1.7 x10^3/uL (1.0-4.8) 2.0 x10^3/uL (1.0-4.8) Monocytes # (Auto) 1.0 x10^3/uL (0.0-1.1) 0.7 x10^3/uL (0.0-1.1) Eosinophils # (Auto) 0.1 x10^3/uL (0.0-0.7) 0.1 x10^3/uL (0.0-0.7) Basophils # (Auto) 0.1 x10^3/uL (0.0-0.2) 0.0 x10^3/uL (0.0-0.2) Prothrombin Time 13.5 SEC (11.7-14.0) Prothromb Time International Ratio 1.1 (0.8-1.1) Sodium Level 139 mmol/L (136-145) 141 mmol/L (136-145) Potassium Level 3.9 mmol/L (3.5-5.1) 3.9 mmol/L (3.5-5.1) Chloride Level 106 mmol/L (98-107) 108 mmol/L (98-107) Carbon Dioxide Level 25 mmol/L (21-32) 22 mmol/L (21-32) Anion Gap 8 (6-14) 11 (6-14) Blood Urea Nitrogen 9 mg/dL (7-20) 7 mg/dL (7-20) Creatinine 0.9 mg/dL (0.6-1.0) 0.8 mg/dL (0.6-1.0) Estimated GFR (Cockcroft-Gault) 74.0 84.8 BUN/Creatinine Ratio 10 (6-20) Glucose Level 104 mg/dL (70-99) 100 mg/dL (70-99) Calcium Level 8.8 mg/dL (8.5-10.1) 8.5 mg/dL (8.5-10.1) Total Bilirubin 0.2 mg/dL (0.2-1.0) Aspartate Amino Transf (AST/SGOT) 19 U/L (15-37) Alanine Aminotransferase (ALT/SGPT) 19 U/L (14-59) Alkaline Phosphatase 72 U/L (46-116) Total Protein 6.7 g/dL (6.4-8.2) Albumin 3.4 g/dL (3.4-5.0) Albumin/Globulin Ratio 1.0 (1.0-1.7) Lipase 200 U/L (73-393) Procalcitonin < 0.10 ng/mL (0.00-0.10) Test 04/13/20 12:00 Lactic Acid Level 0.6 mmol/L (0.4-2.0) Microbiology 04/12/20 Urine Culture - Final, Complete Medications Current Medications Sodium Chloride 1,000 ml @ 1,000 mls/hr Q1H IV Last administered on 04/12/20 19:01; Start 04/12/20 at 18:36; Stop 04/12/20 at 19:35; Status DC Ondansetron HCl (Zofran) 4 mg 1X ONCE IVP Last administered on 04/12/20at 19:06; Start 04/12/20 at 19:00; Stop 04/12/20 at 19:01; Status DC Fentanyl Citrate (Fentanyl 2ml Vial) 50 mcg 1X ONCE IVP Last administered on 04/12/20 19:07; Start 04/12/20 at 19:00; Stop 04/12/20 at 19:01; Status DC Iohexol (Omnipaque 300 Mg/ml) 75 ml 1X ONCE IV Last administered on 04/12/20at 19:39; Start 04/12/20 at 19:15; Stop 04/12/20 at 19:16; Status DC Info (CONTRAST GIVEN -- Rx MONITORING) 1 each PRN DAILY PRN MC SEE COMMENTS; Start 04/12/20 at 19:15; Stop 04/14/20 at 19:14 Ciprofloxacin/ Dextrose 200 ml @ 200 mls/hr 1X ONCE IV Last administered on 04/12/20at 21:08; Start 04/12/20 at 20:15; Stop 04/12/20 at 21:14; Status DC Metronidazole 100 ml @ 100 mls/hr 1X ONCE IV Last administered on 04/12/20at 20:30; Start 04/12/20 at 20:15; Stop 04/12/20 at 21:14; Status DC Fentanyl Citrate (Fentanyl 2ml Vial) 50 mcg 1X ONCE IVP Last administered on 04/12/20at 20:30; Start 04/12/20 at 20:15; Stop 04/12/20 at 20:16; Status DC Ondansetron HCl (Zofran) 4 mg PRN Q8HRS PRN IV NAUSEA/VOMITING; Start 04/12/20 at 20:30; Stop 04/13/20 at 20:29; Status DC Sodium Chloride 1,000 ml @ 125 mls/hr Q8H IV ; Start 04/12/20 at 20:19; Stop 04/12/20 at 23:15; Status DC Metronidazole 100 ml @ 100 mls/hr Q8HRS IV Last administered on 04/14/20at 05:34; Start 04/13/20 at 06:00 Sodium Chloride 1,000 ml @ 100 mls/hr Q10H IV Last administered on 04/13/20at 21:14; Start 04/12/20 at 21:15 Nicotine (Nicoderm Cq 21mg) 1 patch PRN DAILY PRN TD SMOKING CESSATION; Start 04/12/20 at 21:15 Zolpidem Tartrate (Ambien) 5 mg PRN QHS PRN PO INSOMNIA, MAY REPEAT IN 1HR Last administered on 04/13/20at 21:21; Start 04/12/20 at 21:15 Fentanyl Citrate (Fentanyl 2ml Vial) 50 mcg PRN Q2HR PRN IVP PAIN Last administered on 04/14/20at 10:25; Start 04/12/20 at 22:30 Dicyclomine HCl (Bentyl) 10 mg PRN QID PRN PO abd pain Last administered on 04/14/20at 03:37; Start 04/13/20 at 11:15 Famotidine (Pepcid) 20 mg QHS PO Last administered on 04/13/20at 21:13; Start 04/13/20 at 21:00 Lactobacillus Rhamnosus (Culturelle) 1 cap BID PO Last administered on 08/24at 08:58; Start 04/13/20 at 21:00 Magnesium Citrate (Citroma) 296 ml 1X ONCE PO Last administered on 04/14/20at 11:00; Start 04/14/20 at 11:00; Stop 04/14/20 at 11:03; Status DC Vitals/I & O Vital Sign - Last 24 Hours 04/13/20 04/13/20 04/13/2004/13/20 15:07 15:50 19:00 20:00 Temp 97.8 98.0 97.8 98.0 Pulse 62 69 Resp 18 20 18 B/P (MAP) 97/57 (70) 110/76 (87) Pulse Ox 98 94 98 O2 Delivery Room Air Room Air Room Air Room Air 04/13/20 04/13/20 04/13/20 04/13/20 20:03 22:43 23:00 23:13 Temp 98.1 98.1 Pulse 64 Resp 20 14 18 12 B/P (MAP) 120/77 (91) Pulse Ox 98 98 99 99 O2 Delivery Room Air Room Air Room Air Room Air 04/14/20 04/14/20 04/14/20 04/14/20 03:00 05:35 06:05 07:00 Temp 98.4 98.6 98.4 98.6 Pulse 55 52 Resp 18 12 12 16 B/P (MAP) 96/49 (65) 105/59 (74) Pulse Ox 98 98 98 97 O2 Delivery Room Air Room Air Room Air Room Air 04/14/20 04/14/20 04/14/20 08:00 10:25 11:15 Temp 98.5 98.5 Pulse 58 Resp 20 B/P (MAP) 107/57 (74) Pulse Ox 94 99 O2 Delivery Room Air Room Air Room Air Intake and Output 04/13/20 04/13/20 04/14/20 15:00 23:00 07:00 Intake Total 200 ml 250 ml 50 ml Balance 200 ml 250 ml 50 ml VIOLETTA ROMAN MD Apr 14, 2020 13:41
--- NOTE | 2020-04-14 14:15 | NUR ---
SW following for discharge planning. Reviewed chart and spoke with RN. Pt continues to be monitored for signs of withdrawal. Pt continues to deny substance use. Pt remains on room air. SW will continue following but no additional needs identified at this time.
[2020-04-14 15:00] VITALS: BP 109/70
[2020-04-14 19:00] VITALS: BP 116/72
[2020-04-14] MEDS: FAMOTIDINE 20 MG TABLET. PO SCH (21:43)
[2020-04-14] MEDS: ZOLPIDEM 5 MG TABLET. PO PRN (21:43)
[2020-04-14 23:00] VITALS: BP 131/81
[2020-04-15 03:00] VITALS: BP 122/72
[2020-04-15] MEDS: DICYCLOMINE HCL 10 MG CAPSULE PO PRN ×3 (04:14→20:58)
[2020-04-15] MEDS: IV NORMAL SALINE 1000ML BAG 1,000 ML IV SCH ×2 (04:19→09:12)
[2020-04-15] MEDS: fentaNYL PF VIAL 100 MCG/2 ML VIAL IVP PRN ×10 (04:19→23:04)
[2020-04-15 07:00] VITALS: BP 90/50
[2020-04-15] MEDS: LACTOBACILLUS RHAMNOSUS GG 1 CAPSULE. PO SCH ×2 (09:11→20:58)
--- NOTE | 2020-04-15 09:51 | PDOC ---
Subjective: Subjective: Pain the same. Never goes away but pain meds help. Can sleep for about an hour at a time. Has taken a few sips of liquids. Starts in right mid abdomen and moves to belly button. Dicyclomine not helpful. Objective: Vital Signs: Vital Signs Date Time Temp Pulse Resp B/P (MAP) Pulse Ox O2 Delivery O2 Flow Rate FiO2 04/15/20 07:00 98.2 50 15 90/50 (63) 96 Room Air 98.2 PE: GEN: NAD LUNGS: CTAB HEART: RRR ABD: quiet BS, right periumbilical discomfort to RLQ - tender to light touch w/ some guarding NEURO/PSYCH: A & O 3 A/P: Right periumbilical/RLQ pain, nausea, diarrhea - stool tests pending Abnormal CT - mild colitis in ascending colon, appendix non-identified, s/p peyton +meth -- Ongoing pain, will review w/ Dr. Michelle. Update - offered colonoscopy for tomorrow and she agreed; however, unable to proceed w/ this tomorrow due to scheduling issues w/ GI lab. Justicifation of Admission Dx: Justifications for Admission: Justification of Admission Dx: Yes Sepsis: Parenteral Antimicrobial CHEYENNE NOLEN Apr 15, 2020 09:50
[2020-04-15 11:00] VITALS: BP 108/73
[2020-04-15 11:03] LABS: HEMATOCRIT 37.6 % (36.0-47.0); HEMOGLOBIN 12.5 g/dL (12.0-15.5); RED BLOOD COUNT 4.52 x10^6/uL (3.50-5.40); RED CELL DISTRIBUTION WIDTH 15.7 % (11.5-14.5); WHITE BLOOD COUNT 11.9 x10^3/uL (4.0-11.0)
--- NOTE | 2020-04-15 11:24 | PDOC ---
[facility] PROGRESS NOTE Chief Complaint Chief Complaint Colitis History of Present Illness History of Present Illness 04/15/2020 Patient seen and examined Chart reviewed Discussed with RN Patient not tolerating clear liquid diet Awaiting further GI input On IV antibiotic Vitals/I&O Vitals/I&O: Vital Signs Date Time Temp Pulse Resp B/P (MAP) Pulse Ox O2 Delivery O2 Flow Rate FiO2 04/15/20 08:15 Room Air 04/15/20 07:00 98.2 50 15 90/50 (63) 96 98.2 I & O 04/14/20 04/14/20 04/15/20 15:00 23:00 07:00 Intake Total 390 ml 1200 ml Balance 390 ml 1200 ml Physical Exam General: Alert, Oriented X3, Cooperative, mild distress Heart: Regular rate, Normal S1, Normal S2 Lungs: Clear Abdomen: Soft (tender, no guarding) Extremities: No cyanosis, No edema Skin: No rashes, No significant lesion Labs Labs: Laboratory Tests Test 04/15/20 10:45 White Blood Count 11.9 x10^3/uL (4.0-11.0) Red Blood Count 4.52 x10^6/uL (3.50-5.40) Hemoglobin 12.5 g/dL (12.0-15.5) Hematocrit 37.6 % (36.0-47.0) Mean Corpuscular Volume 83 fL (79-100) Mean Corpuscular Hemoglobin 28 pg (25-35) Mean Corpuscular Hemoglobin Concent 33 g/dL (31-37) Red Cell Distribution Width 15.7 % (11.5-14.5) Platelet Count 262 x10^3/uL (140-400) Assessment and Plan Assessmemt and Plan Problems Medical Problems: (1) Colitis Status: A Colitis continue antibiotics acute abd pain, patient reporting is persistent. nausea and vomiting and diarrhea improved. sepsis unlikely and ruled out, patient may have had two elements of sirs due to mildly elevated wbc and tachycardia initially all of these have improved, her tachycardia may be explained by meth use. 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 Justicifation of Admission Dx: Justifications for Admission: Justification of Admission Dx: Yes Sepsis: Parenteral Antimicrobial CASTLE,NIAL K III DO Apr 15, 2020 11:24
[2020-04-15 11:27] LABS: CALCIUM 8.2 mg/dL (8.5-10.1); GFR 65.6; POTASSIUM 3.7 mmol/L (3.5-5.1)
--- NOTE | 2020-04-15 12:23 | NUR ---
SW following for discharge planning. SW reviewed chart and spoke with RN. Pt continues to have abdominal pain and remains on IV abx. Spoke with Dr. Bermudez who is awaiting further GI input. SW to continue following.
[2020-04-15 15:39] VITALS: BP 107/63
[2020-04-15 19:00] VITALS: BP 110/57
[2020-04-15] MEDS: FAMOTIDINE 20 MG TABLET. PO SCH (20:58)
[2020-04-15 23:00] VITALS: BP 124/74
[2020-04-15] MEDS: ZOLPIDEM 5 MG TABLET. PO PRN (23:04)
[2020-04-16] MEDS: fentaNYL PF VIAL 100 MCG/2 ML VIAL IVP PRN ×11 (01:48→22:57)
[2020-04-16 03:00] VITALS: BP 119/70
[2020-04-16] MEDS: IV NORMAL SALINE 1000ML BAG 1,000 ML IV SCH ×3 (04:03→15:15)
[2020-04-16 07:00] VITALS: BP 89/92
[2020-04-16] MEDS: LACTOBACILLUS RHAMNOSUS GG 1 CAPSULE. PO SCH ×2 (08:24→20:44)
--- NOTE | 2020-04-16 10:27 | PDOC ---
[facility] [facility] PROGRESS NOTE Chief Complaint Chief Complaint Colitis History of Present Illness History of Present Illness 04/16/2020 Patient seen and examined She still was not tolerating clear liquids Requiring a lot of IV fentanyl Discussed with case management Chart reviewed 04/15/2020 Patient seen and examined Chart reviewed Discussed with RN Patient not tolerating clear liquid diet Awaiting further GI input On IV antibiotic Vitals/I&O Vitals/I&O: Vital Signs Date Time Temp Pulse Resp B/P (MAP) Pulse Ox O2 Delivery O2 Flow Rate FiO2 04/16/20 08:24 Room Air 04/16/20 07:00 98.2 54 17 89/92 (91) 96 98.2 I & O 04/15/20 04/15/20 04/16/20 15:00 23:00 07:00 Intake Total 0 ml 1300 ml Balance 0 ml 1300 ml Physical Exam General: Oriented X3, Cooperative, mild distress, Other (Seems depressed but denies it) Heart: Regular rate, Normal S1, Normal S2 Lungs: Clear Abdomen: Soft (tender, no guarding), Other (Tender to touch) Extremities: No cyanosis, No edema Skin: No rashes, No significant lesion Labs Labs: Laboratory Tests Test 04/15/20 10:45 White Blood Count 11.9 x10^3/uL (4.0-11.0) Red Blood Count 4.52 x10^6/uL (3.50-5.40) Hemoglobin 12.5 g/dL (12.0-15.5) Hematocrit 37.6 % (36.0-47.0) Mean Corpuscular Volume 83 fL (79-100) Mean Corpuscular Hemoglobin 28 pg (25-35) Mean Corpuscular Hemoglobin Concent 33 g/dL (31-37) Red Cell Distribution Width 15.7 % (11.5-14.5) Platelet Count 262 x10^3/uL (140-400) Sodium Level 140 mmol/L (136-145) Potassium Level 3.7 mmol/L (3.5-5.1) Chloride Level 107 mmol/L (98-107) Carbon Dioxide Level 21 mmol/L (21-32) Anion Gap 12 (6-14) Blood Urea Nitrogen 13 mg/dL (7-20) Creatinine 1.0 mg/dL (0.6-1.0) Estimated GFR (Cockcroft-Gault) 65.6 Glucose Level 85 mg/dL (70-99) Calcium Level 8.2 mg/dL (8.5-10.1) Assessment and Plan Assessmemt and Plan Problems Medical Problems: (1) Colitis Status: Acute Colitis continue antibiotics Acute abd pain, patient reporting is persistent. Nausea and vomiting and diarrhea improved. Sepsis unlikely and ruled out, patient may have had two elements of sirs due to mildly elevated wbc and tachycardia initially all of these have improved, her tachycardia may be explained by meth use. 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 and let her go home Comment Review of Relevant I have reviewed the following items frank (where applicable) has been applied. Justicifation of Admission Dx: Justifications for Admission: Justification of Admission Dx: Yes Sepsis: Parenteral Antimicrobial REMI MCCALLUM III, DO Apr 16, 2020 10:27
--- NOTE | 2020-04-16 10:50 | PDOC ---
Subjective: Subjective: "Up all night," pain the same. Not a lot of stools. Doesn't want to eat/drink. Objective: Vital Signs: Vital Signs Date Time Temp Pulse Resp B/P (MAP) Pulse Ox O2 Delivery O2 Flow Rate FiO2 04/16/20 10:34 Room Air 04/16/20 07:00 98.2 54 17 89/92 (91) 96 98.2 PE: GEN: NAD LUNGS: CTAB HEART: RRR ABD: right-sided tenderness w/ light touch NEURO/PSYCH: A & O 3 A/P: Right periumbilical/RLQ pain, anorexia Diarrhea - better, stool tests negative Abnormal CT - mild colitis in ascending colon, appendix non-identified, s/p peyton +meth -- Very flat affect, not forthcoming though agrees to colonoscopy - we discussed prep, etc. Possible colonoscopy tomorrow after prep pending COVID results. Justicifation of Admission Dx: Justifications for Admission: Justification of Admission Dx: Yes Sepsis: Parenteral Antimicrobial CHEYENNE NOLEN Apr 16, 2020 10:49
[2020-04-16] MEDS ORDERED: BISACODYL 5 MG TABLET.DR. PO ONE (11:00)
[2020-04-16 11:23] VITALS: BP 111/62
[2020-04-16] MEDS ORDERED: POLYETHYLENE GLYCOL 3350 BTL 238 GM POWDER PO ONE (14:00)
[2020-04-16 14:52] VITALS: BP 104/62
--- NOTE | 2020-04-16 14:53 | NUR ---
SW following for discharge planning. SW spoke with RN and Dr. Bermudez. SW reviewed chart. Pt is still on a liquid diet and IV fentanyl. SW to continue following.
[2020-04-16 19:41] VITALS: BP 107/67
[2020-04-16] MEDS: FAMOTIDINE 20 MG TABLET. PO SCH (20:44)
[2020-04-16] MEDS: ZOLPIDEM 5 MG TABLET. PO PRN (23:00)
[2020-04-16 23:24] VITALS: BP 141/67
[2020-04-17] MEDS: IV NORMAL SALINE 1000ML BAG 1,000 ML IV SCH (01:10)
[2020-04-17] MEDS: fentaNYL PF VIAL 100 MCG/2 ML VIAL IVP PRN ×4 (01:11→08:00)
[2020-04-17 03:00] VITALS: BP 101/55
[2020-04-17 07:15] VITALS: BP 90/43
[2020-04-17] MEDS: LACTOBACILLUS RHAMNOSUS GG 1 CAPSULE. PO SCH (08:00)
[2020-04-17] MEDS ORDERED: PROPOFOL 10 MG/ML (20ML) VIAL. IV ONE ×2 (08:22→08:40)
--- NOTE | 2020-04-17 09:12 | PDOC4 ---
PROCEDURE Procedure Colonoscopy Right-sided abdominal pain and abnormal CT scan Anesthesia with sedation Findings-moderate diverticulosis in the sigmoid colon with minimal inflammation. Transverse, ascending and cecum were normal. No evidence for colitis or ulceration (different than what was expected based on the CT findings) Normal terminal ileum Plan: Resume diet and advance as tolerated Dicyclomine and nonnarcotic pain medication with early discharge SARAH KENNY MD Apr 17, 2020 09:12
[2020-04-17 09:40] VITALS: BP 105/60
--- NOTE | 2020-04-17 10:30 | NUR ---
At approx 1010, this RN went to round on pt and she was found to be missing from her room. Pt was last seen by this RN at 0906 and by FRANCO Quijano at 0935. Pt had red sweatshirt on. This RN called and notified security immediately. Kiran Esphion personnel called at approx 1013 and reported to this RN that the pt may have been seen in the second floor elevator approx 5 minutes prior. This RN notified Dr. Bermudez at 1014 by telephone. Pt's IV was previously running NS. When pt found to be missing, IV tubing was disconnected, no IV catheter found. No belongings in room. Leonard Esphion personnel spoke with this RN at 1027 again and they thought she had been seen, no location given. Sara, nursing master control supervisor also notified of missing pt. Addendum: 04/17/20 at 1104 by SARAH HEALY RN Amend to previous note: Pt was last seen by this RN at approx 0932.
--- NOTE | 2020-04-17 10:46 | NUR ---
This RN spoke with Kiran, security personnel at 1045 and he stated that the pt had not been located at this time. Dr. Bermudez on unit and notified in person.
--- NOTE | 2020-04-17 11:29 | NUR ---
Leonard, security personnel showed this RN a photo from security camera footage of pt leaving the outpatient exit at 0947.
--- NOTE | 2020-04-17 12:44 | DS ---
DATE OF DISCHARGE: 04/17/2020 ADMISSION DIAGNOSES: Colitis and history of methamphetamine abuse. DISCHARGE DIAGNOSES: Resolving colitis (the patient left AMA). HOSPITAL COURSE: The patient is a pleasant 29-year-old female who does methamphetamine. She presented with colitis. We admitted her, gave her fluids and pain meds and tried to advance her clear liquid diet. She had a colonoscopy, which did show some diverticular disease. We are going to try to advance her diet, but then this morning, the nurse called me and explained to me that the patient disappeared. I think she left against medical advice. REMI MCCALLUM DO DR: MARGARITO/dolly JOB#: [id number] / [id number]
== END 2020-04-17 11:33 | disposition left against medical advice (07) | DRG 392 ==
LOC: ER 18:24 → 6 SOUTH 20:11
PROVIDERS: ADMIT Internal Medicine; ATTEND Internal Medicine
PROC: 0DJD8ZZ Inspection of Lower Intestinal Tract, Via Natural or Artificial Opening Endoscopic (ICD-10-PCS; principal; 2020-04-17 08:30)
DX: K52.9 Noninfective gastroenteritis and colitis, unspecified (principal); K57.30 Diverticulosis of large intestine without perforation or abscess without bleeding; F17.210 Nicotine dependence, cigarettes, uncomplicated; Z90.49 Acquired absence of other specified parts of digestive tract; D72.829 Elevated white blood cell count, unspecified; F15.90 Other stimulant use, unspecified, uncomplicated; K05.6 Periodontal disease, unspecified; Z53.29 Procedure and treatment not carried out because of patient's decision for other reasons; Z20.828 Contact with and (suspected) exposure to other viral communicable diseases
CPT/HCPCS: 36415; 45378; 74177; 80048; 80053; 80307; 81001; 81025; 83605; 83690; 84145; 85025; 85027; 85610; 87086; 87493; 87505; 96361; 96365; 96368; 96375; 96376; 99285; J0744; J2405; J2704; J3010; J3490; J7030; Q9967; U0003; G0378